=== PATIENT | female | born 2000 | race Caucasian/White ===

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

== ENCOUNTER 2020-09-20 19:25 | Emergency (ER) | payer OTHER, SELFPAY ==
[~2020-09-20] VITALS: Ht 170.2 cm; Wt 67.2 kg
[~2020-09-20 19:25] MED LIST changes: +ABIL1TAB12 PO; +FOLI1TAB11 PO; +GABA-1171 PO; +IBUP1TAB6 PO; -LAMO100T; +LAMO100T3; +MIRT-62 PO; +NICO21PAT TD; +SERT50TA29 PO; +VITMTA PO
--- NOTE | 2020-09-20 21:12 | ECGEPIP ---
[facility] - ED Test Date: 2020-09-20 Pat Name: LINWOOD BURGOS Department: Room: - Gender: Female Webbing Weaver: CHUCKIE : 2000 Requested By: MACY Jack Order Number: [id number] Reading MD: Avery Cole Measurements Intervals [place] Rate: 46 P: 29 RI: 156 QRS: 87 QRSD: 92 T: 69 QT: 464 QTc: 406 Interpretive Statements Sinus bradycardia rate decreased from tracing done 05-31-18 Electronically Signed on 09-20-2020 21:12:04 EDT by Avery Cole
[2020-09-20 21:34] LABS: BASO % 0.8 % (0.0-1.0); EOS # 0.1 10^3/uL (0.0-0.5); EOS % 0.9 % (0.0-3.0); HEMATOCRIT 45.4 % (36.0-47.0); HEMOGLOBIN 14.8 g/dl (12.0-15.5); LYMPH # 2.1 10^3/uL (1.5-5.0); LYMPH % 39.2 % (24.0-44.0); MEAN CORPUSCULAR HEMOGLOBIN 29.8 pg (27.0-33.0); MEAN CORPUSCULAR HGB CONC 32.6 g/dl (32.0-36.5); MEAN CORPUSCULAR VOLUME 91.5 fl (80.0-96.0); MONO # 0.4 10^3/uL (0.0-0.8); MONO % 8.3 % (2.0-8.0); NEUTROPHILS # 2.7 10^3/uL (1.5-8.5); NEUTROPHILS % 50.6 % (36.0-66.0); PLATELET COUNT, AUTOMATED 223 10^3/uL (150-450); RED BLOOD COUNT 4.96 10^6/uL (4.00-5.40); WHITE BLOOD COUNT 5.3 10^3/uL (4.0-10.0)
[2020-09-20 21:52] LABS: HCG, SERUM QUALITATIVE NEGATIVE (NEGATIVE)
[2020-09-20 21:59] LABS: ACETAMINOPHEN LEVEL < 2.0 UG/ML (10.0-30.0); ALBUMIN 4.2 GM/DL (3.2-5.2); ALT/SGPT 29 U/L (12-78); BILIRUBIN,DIRECT 0.1 MG/DL (0.0-0.2); BILIRUBIN,TOTAL 0.4 MG/DL (0.2-1.0); BLOOD UREA NITROGEN 14 MG/DL (7-18); CALCIUM LEVEL 9.1 MG/DL (8.5-10.1); CARBON DIOXIDE LEVEL 30 MEQ/L (21-32); CHLORIDE LEVEL 108 MEQ/L (98-107); ETHYL ALCOHOL (ETHANOL) < 0.003 % (0.000-0.010); GLOMERULAR FILTRATION RATE > 60.0 (>60); GLUCOSE, FASTING 106 MG/DL (70-100); POTASSIUM SERUM 3.8 MEQ/L (3.5-5.1); SALICYLATE LEVEL < 1.7 MG/DL (5.0-30.0); SODIUM LEVEL 143 MEQ/L (136-145); TOTAL PROTEIN 7.5 GM/DL (6.4-8.2)
[2020-09-20 22:02] LABS: AMPHETAMINES LEVEL URINE NEGATIVE (NEGATIVE); BARBITURATES URINE NEGATIVE (NEGATIVE); BENZODIAZEPINES URINE NEGATIVE (NEGATIVE); CANNABINOIDS URINE NEGATIVE (NEGATIVE); COCAINE METABOLITE URINE NEGATIVE (NEGATIVE); METHADONE URINE NEGATIVE (NEGATIVE); OPIATES URINE NEGATIVE (NEGATIVE); PHENCYCLIDINE URINE NEGATIVE (NEGATIVE)
[2020-09-20 22:04] LABS: RSV AMPLIFICATION NEGATIVE (NEGATIVE)
[2020-09-20] MEDS ORDERED: HOME MED LIST COMPLETE! XX SCH (22:10)
[2020-09-21 00:47] VITALS: BP 107/60
== END 2020-09-21 00:51 ==
LOC: M ED 23:00
DX: R45.851 Suicidal ideations (principal); R00.1 Bradycardia, unspecified; F32.9 Major depressive disorder, single episode, unspecified; F19.10 Other psychoactive substance abuse, uncomplicated; F17.200 Nicotine dependence, unspecified, uncomplicated; F17.290 Nicotine dependence, other tobacco product, uncomplicated; F12.10 Cannabis abuse, uncomplicated; F15.10 Other stimulant abuse, uncomplicated

== ENCOUNTER → 2022-06-02 | Outpatient (CLI) | payer OTHER | LOC: M OUTALCOH 08:00 | PROVIDERS: ATTEND Psychiatry & Neurology Psychiatry | DX: Z13.39 Encounter for screening examination for other mental health and behavioral disorders (principal) ==

== ENCOUNTER → 2022-07-09 | Outpatient (RCR) | payer OTHER | LOC: M OUTALCOH 06-09 09:36 | PROVIDERS: ATTEND Psychiatry & Neurology Psychiatry | DX: F10.20 Alcohol dependence, uncomplicated (principal); F15.20 Other stimulant dependence, uncomplicated; F12.10 Cannabis abuse, uncomplicated; Z72.0 Tobacco use ==

== ENCOUNTER 2022-07-15 20:58 | Emergency (ER) | payer OTHER ==
[2022-07-15 21:13] VITALS: TEMP 97.8
[2022-07-15 21:35] LABS: BASO # 0.1 10^3/uL (0.0-0.2); BASO % 0.6 % (0.0-1.0); EOS % 0.2 % (0.0-3.0); HEMATOCRIT 38.5 % (36.0-47.0); LYMPH # 3.9 10^3/uL (1.5-5.0); LYMPH % 41.9 % (24.0-44.0); MEAN CORPUSCULAR HGB CONC 33.8 g/dl (32.0-36.5); MEAN CORPUSCULAR VOLUME 88.7 fl (80.0-96.0); MONO # 0.5 10^3/uL (0.0-0.8); MONO % 5.5 % (2.0-8.0); NEUTROPHILS # 4.8 10^3/uL (1.5-8.5); NEUTROPHILS % 51.5 % (36.0-66.0); PLATELET COUNT, AUTOMATED 217 10^3/uL (150-450); RED BLOOD COUNT 4.34 10^6/uL (4.00-5.40); WHITE BLOOD COUNT 9.4 10^3/uL (4.0-10.0)
[2022-07-15 21:40] LABS: BLOOD UREA NITROGEN 8 MG/DL (9-23); CALCIUM LEVEL 8.5 MG/DL (8.5-10.1); CARBON DIOXIDE LEVEL 27 MMOL/L (20-31); CHLORIDE LEVEL 105 MMOL/L (98-107); CK-MB VALUE MASS < 1.0 NG/ML (<3.6); CPK CREATINE PHOSPHOKINASE 79 U/L (34-145); CREATININE FOR GFR 0.69 MG/DL (0.55-1.30); GLOMERULAR FILTRATION RATE > 60.0 (>60); GLUCOSE, FASTING 118 MG/DL (60-100); MB/CK RELATIVE INDEX 1.26 (< OR =4); POTASSIUM SERUM 3.4 MMOL/L (3.5-5.1); SODIUM LEVEL 139 MMOL/L (136-145)
[2022-07-15 21:42] LABS: THYROID STIMULATING HORMONE 1.074 uIU/ML (0.55-4.78)
[2022-07-15 21:43] LABS: ETHYL ALCOHOL (ETHANOL) 0.217 % (0.000-0.010)
[2022-07-15 21:50] LABS: HCG, SERUM QUALITATIVE NEGATIVE (NEGATIVE)
[2022-07-15] MEDS ORDERED: NS 1,000 ML IV ONE (22:20)
[2022-07-15 23:39] LABS: AMPHETAMINES LEVEL URINE NEGATIVE (NEGATIVE); BARBITURATES URINE NEGATIVE (NEGATIVE); BENZODIAZEPINES URINE NEGATIVE (NEGATIVE); COCAINE METABOLITE URINE NEGATIVE (NEGATIVE); METHADONE URINE NEGATIVE (NEGATIVE); OPIATES URINE NEGATIVE (NEGATIVE); PHENCYCLIDINE URINE NEGATIVE (NEGATIVE)
[2022-07-15 23:42] LABS: CANNABINOIDS URINE POSITIVE (NEGATIVE)
[2022-07-16 01:15] VITALS: BP 96/54; O2SAT 95
== END 2022-07-16 01:24 | disposition home or self-care (01) ==
LOC: M ED 20:58 → EDBD 20:58 → M ED 07-16 01:24
DX: R55 Syncope and collapse (principal); F10.129 Alcohol abuse with intoxication, unspecified; F41.9 Anxiety disorder, unspecified; F32.9 Major depressive disorder, single episode, unspecified; F17.290 Nicotine dependence, other tobacco product, uncomplicated; F12.10 Cannabis abuse, uncomplicated; G93.0 Cerebral cysts; Z88.8 Allergy status to other drugs, medicaments and biological substances

== ENCOUNTER 2022-08-06 14:00 | Outpatient (RCR) | payer OTHER | END 2022-08-08 | LOC: M OUTALCOH 14:00 | PROVIDERS: ATTEND Psychiatry & Neurology Psychiatry | DX: F10.20 Alcohol dependence, uncomplicated (principal); F15.20 Other stimulant dependence, uncomplicated; F12.10 Cannabis abuse, uncomplicated; Z72.0 Tobacco use ==

== ENCOUNTER 2022-09-03 16:00 | Outpatient (RCR) | payer OTHER | END 2022-09-08 | LOC: M OUTALCOH 16:00 | PROVIDERS: ATTEND Psychiatry & Neurology Psychiatry | DX: F10.20 Alcohol dependence, uncomplicated (principal); F15.20 Other stimulant dependence, uncomplicated; F12.10 Cannabis abuse, uncomplicated; Z72.0 Tobacco use ==

== ENCOUNTER 2023-02-03 23:26 | Inpatient (IN) | payer OTHER ==
[~2023-02-03] VITALS: Ht 170.2 cm; Wt 79.5 kg
[~2023-02-03 23:26] MED LIST changes: -MIRT-62 PO; +MIRT-88 PO
[2023-02-03] MEDS ORDERED: NS 1,000 ML IV ONE (23:35)
[2023-02-04 00:05] LABS: VENOUS BASE EXCESS -4.8 (-2.0-2.0); VENOUS HCO3 20.5 MMOL/L (23.0-27.0); VENOUS O2 SATURATION 97.7 % (60.0-80.0); VENOUS PARTIAL PRESSURE CO2 38.9 mmHg (38.0-50.0); VENOUS PARTIAL PRESSURE O2 116.3 mmHg (30.0-50.0); VENOUS STANDARD HCO3 20.6 MMOL/L; VENOUS TOTAL CO2 21.7 MMOL/L (24.0-28.0)
[2023-02-04] MEDS ORDERED: CHARCOAL ACTIVATED LIQUID 25GM/120ML BTL PO ONE (00:05)
[2023-02-04 00:18] LABS: BASO % 0.6 % (0.0-1.0); EOS # 0.1 10^3/uL (0.0-0.5); EOS % 0.9 % (0.0-3.0); HEMATOCRIT 39.3 % (36.0-47.0); HEMOGLOBIN 13.6 g/dl (12.0-15.5); LYMPH # 2.2 10^3/uL (1.5-5.0); LYMPH % 33.6 % (24.0-44.0); MEAN CORPUSCULAR HEMOGLOBIN 31.9 pg (27.0-33.0); MEAN CORPUSCULAR HGB CONC 34.6 g/dl (32.0-36.5); MONO # 0.5 10^3/uL (0.0-0.8); MONO % 7.6 % (2.0-8.0); NEUTROPHILS # 3.7 10^3/uL (1.5-8.5); NEUTROPHILS % 56.8 % (36.0-66.0); PLATELET COUNT, AUTOMATED 188 10^3/uL (150-450); RED BLOOD COUNT 4.27 10^6/uL (4.00-5.40); WHITE BLOOD COUNT 6.5 10^3/uL (4.0-10.0)
[2023-02-04 00:31] LABS: ALBUMIN 3.9 G/DL (3.2-5.2); ALKALINE PHOSPHATASE 36 U/L (46-116); ALT/SGPT 32 U/L (7.0-40); AST/SGOT 34 U/L (<34); BILIRUBIN,DIRECT < 0.1 MG/DL (<0.4); BILIRUBIN,TOTAL 0.3 MG/DL (0.3-1.2); BLOOD UREA NITROGEN 13 MG/DL (9-23); CALCIUM LEVEL 8.4 MG/DL (8.5-10.1); CARBON DIOXIDE LEVEL 20 MMOL/L (20-31); CHLORIDE LEVEL 109 MMOL/L (98-107); CREATININE FOR GFR 0.62 MG/DL (0.55-1.30); GLOMERULAR FILTRATION RATE > 60.0 (>60); GLUCOSE, FASTING 108 MG/DL (60-100); POTASSIUM SERUM 4.3 MMOL/L (3.5-5.1); SALICYLATE LEVEL < 3.0 MG/DL (<30); SODIUM LEVEL 139 MMOL/L (136-145); TOTAL PROTEIN 6.8 G/DL (5.7-8.2)
[2023-02-04 00:33] LABS: THYROID STIMULATING HORMONE 2.114 uIU/ML (0.55-4.78)
[2023-02-04 00:39] LABS: CPK CREATINE PHOSPHOKINASE 93 U/L (34-145)
[2023-02-04] MEDS ORDERED: MIDAZOLAM INJ 2MG/2ML VIAL IV ONE (01:20)
[2023-02-04 01:29] LABS: AMPHETAMINES LEVEL URINE NEGATIVE (NEGATIVE); BARBITURATES URINE NEGATIVE (NEGATIVE); BENZODIAZEPINES URINE NEGATIVE (NEGATIVE); COCAINE METABOLITE URINE NEGATIVE (NEGATIVE); METHADONE URINE NEGATIVE (NEGATIVE)
[2023-02-04 01:30] LABS: CANNABINOIDS URINE POSITIVE (NEGATIVE); OPIATES URINE NEGATIVE (NEGATIVE); PHENCYCLIDINE URINE NEGATIVE (NEGATIVE)
[2023-02-04 08:36] LABS: HCG, SERUM QUALITATIVE NEGATIVE (NEGATIVE)
[2023-02-04] MEDS ORDERED: MED REC IN PROGRESS XX SCH ×2 (12:55→13:10)
[2023-02-04] MEDS ORDERED: VENL225T32 PO (13:02)
[2023-02-04] MEDS ORDERED: ATOM60CA7 PO (13:02)
[2023-02-04] MEDS ORDERED: HOME MED LIST COMPLETE! XX SCH (13:10)
[2023-02-04] MEDS ORDERED: IBUPROFEN 400MG TAB PO PRN (13:25)
[2023-02-04] MEDS ORDERED: diphenhydrAMINE 25MG CAP PO PRN (13:25)
[2023-02-04] MEDS ORDERED: ACETAMINOPHEN TAB 650MG DOSE (2X325MG) PO PRN (13:25)
[2023-02-04] MEDS ORDERED: MOM 30ML SUSPENSION UDC PO PRN (13:25)
[2023-02-04] MEDS ORDERED: LORazepam 2 MG TAB PO PRN (13:25)
[2023-02-04] MEDS ORDERED: MAALOX 30 ML SUSP *UDC PO PRN (13:25)
[2023-02-04] MEDS: NICOTINE 21MG/24HR 1 EA TRANSDERMAL TD SCH (16:15)
[2023-02-04 17:48] VITALS: BP 106/63; TEMP 98.8; O2SAT 100
[2023-02-04] MEDS: THIAMINE 100 MG TAB PO SCH (20:20)
[2023-02-04] MEDS: traZODone 50 MG TAB PO PRN (20:20)
[2023-02-05] VITALS (8 sets, daily range): BP systolic 113–144; BP diastolic 58–92; TEMP 98–99.1; O2SAT 99–100
[2023-02-05] MEDS: THIAMINE 100 MG TAB PO SCH ×2 (08:07→20:03)
[2023-02-05] MEDS: FOLIC ACID 1MG TAB PO SCH (08:07)
[2023-02-05] MEDS: MULTIVITAMINS/MINERALS THERAP 1 TAB PO SCH (08:07)
[2023-02-05] MEDS: NALTREXONE 50 MG TAB PO SCH (10:10)
[2023-02-05] MEDS: VENLAFAXINE **XR** 75MG CAPSULE PO SCH (10:10)
[2023-02-05] MEDS: ATOMOXETINE HCL 40 MG CAP (STRATTERA) PO SCH (11:59)
[2023-02-05] MEDS: NICOTINE 21MG/24HR 1 EA TRANSDERMAL TD SCH (15:22)
[2023-02-05] MEDS: traZODone 50 MG TAB PO PRN (20:03)
[2023-02-06 05:00] VITALS: BP 124/59
[2023-02-06 06:59] VITALS: BP 124/59; TEMP 98.6; O2SAT 99
[2023-02-06] MEDS: MULTIVITAMINS/MINERALS THERAP 1 TAB PO SCH (08:09)
[2023-02-06] MEDS: NALTREXONE 50 MG TAB PO SCH (08:09)
[2023-02-06] MEDS: VENLAFAXINE **XR** 75MG CAPSULE PO SCH (08:09)
[2023-02-06] MEDS: FOLIC ACID 1MG TAB PO SCH (08:09)
[2023-02-06] MEDS: ATOMOXETINE HCL 40 MG CAP (STRATTERA) PO SCH (08:09)
[2023-02-06] MEDS: THIAMINE 100 MG TAB PO SCH (08:09)
[2023-02-06] MEDS: NICOTINE 21MG/24HR 1 EA TRANSDERMAL TD SCH (08:58)
[2023-02-06 13:00] VITALS: BP 119/78
[2023-02-06 17:25] VITALS: BP 119/78; TEMP 97.5
[2023-02-06] MEDS ORDERED: OLANZapine INTRAMUSCULAR 10MG VIAL IM STA (18:53)
[2023-02-07 06:34] VITALS: BP 106/58; TEMP 98.3; O2SAT 100
[2023-02-07] MEDS: ATOMOXETINE HCL 40 MG CAP (STRATTERA) PO SCH (08:09)
[2023-02-07] MEDS: VENLAFAXINE **XR** 75MG CAPSULE PO SCH (08:09)
[2023-02-07] MEDS: NALTREXONE 50 MG TAB PO SCH (08:09)
[2023-02-07] MEDS: NICOTINE 21MG/24HR 1 EA TRANSDERMAL TD SCH (08:09)
[2023-02-07] MEDS: hydrOXYzine 50 MG TAB PO PRN (16:38)
[2023-02-07 17:46] VITALS: BP 129/74; TEMP 98.3
[2023-02-08 06:33] VITALS: BP 107/56; TEMP 98; O2SAT 99
[2023-02-08] MEDS: ATOMOXETINE HCL 40 MG CAP (STRATTERA) PO SCH (08:21)
[2023-02-08] MEDS: NALTREXONE 50 MG TAB PO SCH (08:21)
[2023-02-08] MEDS: VENLAFAXINE **XR** 75MG CAPSULE PO SCH (08:21)
[2023-02-08] MEDS: NICOTINE 21MG/24HR 1 EA TRANSDERMAL TD SCH (08:23)
[2023-02-08] MEDS: hydrOXYzine 50 MG TAB PO PRN (15:33)
[2023-02-08 18:15] VITALS: BP 120/74; TEMP 97.2
[2023-02-09 06:31] VITALS: BP 112/62; TEMP 98.5; O2SAT 100
[2023-02-09] MEDS: VENLAFAXINE **XR** 75MG CAPSULE PO SCH (08:06)
[2023-02-09] MEDS: ATOMOXETINE HCL 40 MG CAP (STRATTERA) PO SCH (08:06)
[2023-02-09] MEDS: NALTREXONE 50 MG TAB PO SCH (08:06)
[2023-02-09] MEDS: NICOTINE 21MG/24HR 1 EA TRANSDERMAL TD SCH (09:14)
[2023-02-09] MEDS: hydrOXYzine 50 MG TAB PO PRN ×2 (11:29→18:09)
[2023-02-09 16:15] VITALS: BP 136/70; TEMP 97.7; O2SAT 100
[2023-02-09] MEDS: traZODone 50 MG TAB PO PRN (20:32)
[2023-02-10 06:57] VITALS: BP 135/77; TEMP 98.8; O2SAT 100
[2023-02-10] MEDS: VENLAFAXINE **XR** 75MG CAPSULE PO SCH (08:05)
[2023-02-10] MEDS: NALTREXONE 50 MG TAB PO SCH (08:05)
[2023-02-10] MEDS: ATOMOXETINE HCL 40 MG CAP (STRATTERA) PO SCH (08:05)
[2023-02-10] MEDS ORDERED: TRAZ-252 PO (08:49)
[2023-02-10] MEDS ORDERED: NALT50TA4 PO (08:49)
[2023-02-10] MEDS: NICOTINE 21MG/24HR 1 EA TRANSDERMAL TD SCH (09:00)
== END 2023-02-10 11:38 | disposition home or self-care (01) | DRG 881 ==
LOC: M ED 23:26 → M ED INP 02-04 13:21 → M PSY 02-04 17:48
PROVIDERS: ADMIT Student in an Organized Health Care Education/Training Program; ATTEND Student in an Organized Health Care Education/Training Program
DX: F32.A Depression, unspecified (principal); F10.930 Alcohol use, unspecified with withdrawal, uncomplicated; F43.10 Post-traumatic stress disorder, unspecified; F41.9 Anxiety disorder, unspecified; F17.290 Nicotine dependence, other tobacco product, uncomplicated; Z81.4 Family history of other substance abuse and dependence; Z91.51 Personal history of suicidal behavior; Z79.899 Other long term (current) drug therapy; Z88.8 Allergy status to other drugs, medicaments and biological substances; Z20.822 Contact with and (suspected) exposure to COVID-19